=== PATIENT | male | born 1990 | race Caucasian/White ===

== ENCOUNTER 2019-06-25 17:12 | Emergency (ER) | payer OTHER ==
--- NOTE | 2019-06-25 17:47 | ER Document Report ---
HPI - HPI Patient complains to provider of: facial trauma Time Seen by Provider: 06/25/19 17:36 Pain Level: 3 Context: Healthy 29-year-old male presents to the emergency department with chief complaint of facial trauma sustained yesterday while playing softball. He was struck in the right cheek with a fly ball while playing outfield. Patient states that he had pain for couple of hours and is slowly subsided so he went home and slept it off but the pain returned today. Patient's chief concern is that he has a "knot" underneath his right eye that he is concerned about. He went to urgent care and was referred scan to rule out a fracture. Patient denies any vision changes, dizziness or lightheadedness, headache, loss of consciousness, nausea or vomiting, neck stiffness or neck pain. No other complaints Past Medical History - Social History Smoking Status: Unknown if Ever Smoked Family History: None Vertical Provider Document - CONSTITUTIONAL Notes: PHYSICAL EXAMINATION: Reviewed vital signs and charting by RN GENERAL: Alert, interacts well. No acute distress. HEAD: Normocephalic, mild ecchymosis orbital area, there is a protrusion of the maxillary bone but there is no bony crepitus or evidence of depression EYES: Pupils equal and round. Extraocular movements intact. ENT: Oral mucosa moist, tongue midline. NECK: Full range of motion. Trachea midline. EXTREMITIES: Moves all 4 extremities spontaneously. No edema, No cyanosis. PSYCH: Normal affect, normal mood. SKIN: Warm, dry, normal turgor. No rashes or lesions noted. Course - Re-evaluation Re-evalutation: 06/25/19 17:46 Well-appearing there is no fracture concerning anatomical derangement. 06/25/19 19:[address] 06/25/19 17:42 IMPRESSION: 1. Acute fracture of the lateral and inferior greene of the right orbit. Small amount of right periorbital emphysema. 2. Displaced fractures at the anterior and posterolateral greene of the right maxillary sinus with soft tissue emphysema extending from the right doggy daycare activities director space superiorly to the lateral right orbit and right frontal region. 3. Nondisplaced fracture of the right zygoma. 4. Mucosal thickening at the left maxillary sinus. See above for CT read. I spoke with Dr. Quintero, on-call plastics at [facility], he recommended he will see the patient this week in his office and for him to call Wednesday at [phone]. He recommended that the patient keep head of bed greater than 30 degrees when sleeping, a soft diet, sinus precautions, and recommends that patient see an second watch sergeant for thorough examination even though there was no vision loss or deficiencies on exam. He did not recommend patient received prophylactic antibiotics at this time. I explained all this to patient and he understands instructions which will be in his discharge paperwork and is stable for discharge. - Vital Signs Vital signs: Temp Pulse Resp BP Pulse Ox 97.7 F 55 L 16 106/59 L 99 06/25/19 17:28 06/25/19 17:28 06/25/19 17:28 06/25/19 17:28 06/25/19 17:28 Discharge - Discharge Clinical Impression: Zygoma fracture Qualifiers: Encounter type: initial encounter Fracture type: closed Laterality: right Qualified Code(s): S02.40EA - Zygomatic fracture, right side, initial encounter for closed fracture Orbit fracture, right Qualifiers: Encounter type: initial encounter Fracture type: closed Qualified Code(s): S02.81XA - Fracture of other specified skull and facial bones, right side, initial encounter for closed fracture Maxillary sinus fracture Qualifiers: Encounter type: initial encounter Fracture type: closed Qualified Code(s): S02.401A - Maxillary fracture, unspecified side, initial encounter for closed fracture Condition: Stable Disposition: HOME, SELF-CARE Additional Instructions: You were seen in the emergency department this afternoon for multiple facial fractures. I have given you a referral to Dr. Quintero, plastic surgeon at the [facility] medicine in [place]. You need to call his office first thing tomorrow [phone]. In the meantime he made several recommendations. You should eat only a soft diet, you need to call your second watch sergeant and get an eye exam, you need to undergo sinus precautions which means no sucking out of a straw, no blowing her nose, keep your head of bed greater than 30 degrees when sleeping. Also do not bear down or create any additional pressure in your head. Please return to the emergency department if you have acute vision loss, eye entrapment or you cannot move her eyeball, you develop severe intractable headache that is the worst of your life, or you have any other concerning symptoms.
--- NOTE | 2019-06-25 18:27 | RADIOLOGY REPORT (SQ) ---
EXAM DESCRIPTION: CT FACIAL AREA WITHOUT COMPLETED DATE/TIME: 06/25/2019 6:03 pm REASON FOR STUDY: trauma R zygomatic area/maxillary area . Struck in the right eye with ball. COMPARISON: None. TECHNIQUE: Noncontrasted images through the facial bones and orbits windowed for bone and soft tissu e. Additional coronal and sagittal reconstructed images reviewed. All images stored on PACS. All CT scanners at this facility use dose modulation, iterative reconstruction, and/or weight based d osing when appropriate to reduce radiation dose to as low as reasonably achievable (ALARA). [facility]: Dose Right [facility]: CareDose [facility]: Dose Right [facility]: Teradose 4D [facility]: [employer] RADIATION DOSE: mGy. LIMITATIONS: There is streak artifact from the patient's dental amalgam. FINDINGS: FACIAL BONES: Displaced fractures of the anterior and posterolateral greene of the right ma xillary sinus. Nondisplaced fracture of the right zygoma. ORBITS: Mildly displaced fracture of the lateral wall of the right orbit. Mildly displaced fracture at the inferior wall of the right orbit at the infraorbital foramen. Small amount of right periorbit al emphysema Symmetric intact globes and retroorbital soft tissues. PARANASAL SINUSES: Mucosal thickening at the left maxillary sinus. SOFT TISSUES: Soft tissue emphysema at the right delivery consultant space extending superiorly to the lateral right orbit and right frontal region. INFERIOR BRAIN: Limited view. No acute findings. IMPRESSION: 1. Acute fracture of the lateral and inferior greene of the right orbit. Small amount of right periorbital emphysema. 2. Displaced fractures at the anterior and posterolateral greene of the right maxillary sinus with sof t tissue emphysema extending from the right delivery consultant space superiorly to the lateral right orbit an d right frontal region. 3. Nondisplaced fracture of the right zygoma. 4. Mucosal thickening at the left maxillary sinus. TECHNICAL DOCUMENTATION: JOB ID: [id number] AR- Quality ID # [id number]: Final reports with documentation of one or more dose reduction techniques (e.g., Au tomated exposure control, adjustment of the mA and/or kV according to patient size, use of iterative reconstruction technique) 2010 [employer]- All Rights Reserved Reading location - IP/workstation name: [email or web address]
[2019-06-25 20:05] VITALS: BP 112/68
== END 2019-06-25 20:06 | disposition home or self-care (01) ==
LOC: ER 17:12
DX: S09.93XA Unspecified injury of face, initial encounter (principal); S02.401A Maxillary fracture, unspecified side, initial encounter for closed fracture; S02.40EA Zygomatic fracture, right side, initial encounter for closed fracture; W21.07XA Struck by softball, initial encounter; Y93.64 Activity, baseball
CPT/HCPCS: 70486; 99283